=== PATIENT | female | born 1945 | race Hispanic/Latino ===

== ENCOUNTER 2019-12-05 16:36 | Emergency (ER) | payer MEDICARE ==
[~2019-12-05] VITALS: Ht 157.5 cm; Wt 70.3 kg
[2019-12-05] MEDS ORDERED: ACETAMINOPHEN 325 MG TAB PO ONE (17:00)
[2019-12-05] MEDS ORDERED: ACETAMINOPHEN 325 MG TAB ONE (17:03)
--- NOTE | 2019-12-05 17:10 | Emergency Department Note ---
History of Present Illnes History of Present Illness Chief Complaint: Extremity Trauma/Pain History of Present Illness This is a 74 year old female hand dominant. Approximately 8 this morning was chasing a dog and had a mechanical fall. Patient fell over to her left shoulder elbow and forearm, complaining of pain there, denies pain anywhere else, no LOC. Historian: Patient Arrival Mode: Car Onset (how long ago): day(s) Location: L arm Quality: ache Onset quality: gradual Duration (how long): day(s) (1) Timing of current episode: constant Progression: worsening Chronicity: new Relieving factors: none Exacerbating factors: movement Associated symptoms: Reports denies other symptoms Past Medical/Family History Physician Review I have reviewed the patient's past medical and family history. Any updates have been documented here. Past Medical History Recent Fever: No Clinical Suspicion of Infectio: No New/Unexplained Change in Ment: No Past Medical History: COPD Past Surgical History: None Review of Systems Review of Systems Constitutional: Reports no symptoms EENTM: Reports no symptoms Cardiovascular: Reports no symptoms Respiratory: Reports no symptoms Gastrointestinal: Reports no symptoms Genitourinary: Reports no symptoms Musculoskeletal: Reports as per HPI Integumentary: Reports no symptoms Neurological: Reports no symptoms Psychological: Reports no symptoms Endocrine: Reports no symptoms Hematological/Lymphatic: Reports no symptoms Physical Exam Related Data Allergies: Coded Allergies: No Known Allergies (Unverified , 12/05/19) Triage Vital Signs Vital Signs Date Time Temp Pulse Resp B/P (MAP) Pulse Ox O2 Delivery O2 Flow Rate FiO2 12/05/19 16:46 98.1 71 18 159/102 99 Room Air Physical Exam CONSTITUTIONAL Constitutional: Present well-developed, Present well-nourished HENT HENT: Present normocephalic, Present atraumatic, Present oropharynx clear/moist, Present nose normal HENT L/R: Present left ext ear normal, Present right ext ear normal EYES Eyes: Reports PERRL, Reports conjunctivae normal NECK Neck: Present ROM normal PULMONARY Pulmonary: Present effort normal, Present breath sounds normal CARDIOVASCULAR Cardiovascular: Present regular rhythm, Present heart sounds normal, Present capillary refill normal, Present normal rate GASTROINTESTINAL Abdominal: Present soft, Present nontender, Present bowel sounds normal GENITOURINARY Genitourinary: Present exam deferred SKIN Skin: Present warm, Present dry MUSCULOSKELETAL Musculoskeletal: Present ROM normal, Present other (the range of motion left elbow and left shoulder and left wrist secondary to pain, neurovascularly intact distally. Htxr-[id number]-bqagxryn edema over the left wrist.) NEUROLOGICAL Neurological: Present alert, Present oriented x 3, Present no gross motor or sensory deficits PSYCHOLOGICAL Psychological: Present mood/affect normal, Present judgement normal Procedures Orthopedic Splinting/Casting Injury: Injury #1 Side: left Upper exremity injury location: wrist Upper extremity immobilizer: volar splint Additional comments N/V intact distally Assessment & Plan Medical Decision Making MDM Patient is a 74-year-old female here with a mechanical fall, over her left arm. We will do an x-ray CT of her head given her age. We will rule out fracture versus contusion. Assessment & Plan Final Impression: (1) Fall (2) Triquetral fracture Depart Disposition: HOME, SELF-CARE Last Vital Signs Date Time Temp Pulse Resp B/P (MAP) Pulse Ox O2 Delivery O2 Flow Rate FiO2 12/05/19 16:46 98.1 71 18 159/102 99 Room Air Home Meds Active Scripts Tramadol Hcl (ULTRAM) 50 Mg Tablet, 50 MG PO Q6H PRN for severe pain, #10 TAB Prov:PB LIRA MD 12/05/19 Medications in the ED Acetaminophen 975 mg ONCE ONCE PO Last administered on 12/05/19at 16:58; Admin Dose 975 MG; Start 12/05/19 at 17:00; Stop 12/05/19 at 17:01; Status DC Acetaminophen 975 mg STK-MED ONCE .ROUTE ; Start 12/05/19 at 17:03; Stop 12/05/19 at 16:56; Status DC PB LIRA MD Dec 05, 2019 17:10
--- NOTE | 2019-12-05 17:52 | Diagnostic Imaging Report ---
Exam: SHOULDER LEFT COMPLETE - 2 views History: Fall, left arm pain Comparison: None. Findings: No acute displaced fractures. No joint malalignment or dislocation. Mild degenerative arthrosis of the acromioclavicular and glenohumeral joints. Focal calcifications overlying the greater tuberosity of the humerus. Impression: 1. No acute osseous abnormality. 2. Mild degenerative arthrosis of the acromioclavicular and glenohumeral joints. 3. Soft tissue calcifications overlying the greater tuberosity, suggestive of rotator cuff calcific tendinosis. Signed by: Dr. Sebastian Ernst M.D. on 12/05/2019 5:48 PM
--- NOTE | 2019-12-05 17:59 | Diagnostic Imaging Report ---
Exam: ELBOW LEFT COMPLETE, WRIST COMPLETE LEFT, FOREARM LEFT 2 VIEW History: Fall, left arm pain Comparison: None. Findings: Nondisplaced fracture along the dorsal aspect of the triquetral bone. No additional acute fractures visualized given limitations with diffuse osseous demineralization. No joint malalignment or dislocation. Mild degenerative changes of the elbow. No elbow joint effusion. Mild soft tissue swelling along the dorsal aspect of the wrist. Impression: 1. Nondisplaced fracture along the dorsal aspect of the triquetral bone. Associated overlying dorsal soft tissue swelling of the wrist. Signed by: Dr. Sebastian Ernst M.D. on 12/05/2019 5:55 PM
--- NOTE | 2019-12-05 18:20 | Diagnostic Imaging Report ---
History: 74-year-old female with Fall, pain Comparison studies: None Technique: Axial images were obtained from the brain and cervical spine. Coronal and sagittal images reconstructed from the axial data. Dose modulation, iterative reconstruction, and/or weight based adjustment of the mA/kV was utilized to reduce the radiation dose to as low as reasonably achievable. Intravenous contrast: None Findings: Head CT: Scalp/skull: No abnormalities. No fractures, blastic or lytic lesions. Brain sulci: Mildly prominent. Ventricles: Mild compensatory dilatation. No hydrocephalus. Extra-axial spaces: No masses. No fluid collections. Parenchyma: No abnormal densities No masses, hemorrhage, acute or chronic cortical vascular insults. Sellar/suprasellar region: No abnormalities. Craniocervical junction: Patent foramen magnum. No Chiari one malformation. Cervical spine CT: Alignment: Slight reversal of the cervical lordosis, centered at C5, may be positional. No scoliosis. Cervicomedullary junction: No abnormalities. The foramen magnum is patent. Soft tissues:No gross abnormalities . Soft tissues: No abnormalities.. Paraspinal muscles: Unremarkable Spinal cord: Can not be evaluated. Vertebrae: Normal in height and density. No fractures. No infection or neoplasm. Degenerative changes: Moderately degenerated discs from C4 to C7. Mild spinal canal stenosis also from C4 to C7 due to disc osteophyte complexes. Foraminal stenosis from C4 to C7 is worse (moderate) right at C4-5 and C5-6 Incidental findings: Calcification of the ligamentum nuchae at C4 and C5. Mild biapical lung scarring and paraseptal emphysema. IMPRESSION: Head CT: 1. No acute intracranial abnormalities. 2. Incidental mild age-related generalized volume loss. Cervical spine CT: 1. No acute abnormalities. 2. Specifically, no fractures. 3. Cannot adequately evaluate for ligament, spinal cord and or vascular abnormalities. 4. Degenerative changes as described A preliminary report was provided by Dr. Moncho Zacarias on 12/05/2019 at 6:19 PM. Signed by: Dr. Kartik Ortega M.D. on 12/05/2019 7:33 PM
[2019-12-05] MEDS ORDERED: ULTRAM50 MG PO (18:36)
--- NOTE | 2019-12-05 18:44 | NUR ---
Volar Splint applied to the left wrist
[2019-12-05 19:06] VITALS: BP 126/60
--- OUTSIDE RECORDS SUMMARY | 2019-12-11 18:09 | XMS REPORT | Continuity of Care Document ---
Author Author [facility] Address [address] [place] [id number] Phone Unavailable Care Team Providers Care Drive In Waiter/Waitress Name Role Phone Gus LIRA Unavailable Problems This patient has no known problems. Allergies, Adverse Reactions, Alerts This patient has no known allergies or adverse reactions. Medications This patient has no known medications. Procedures This patient has no known procedures. Results Test Description Test Time Test Comments Results Result Comments Source CT CERVICAL SPINE WO 2019-12-05 18:06:00 [facility] 1945 Sex: F [facility] [address] [address] Patient Name: JOE LU MR #: [id number] : 1945 Age/Sex: 74/F Req #: [id number] [facility] Physician: Ordered by: PB LIRA MD Report #: [id number] Location: ER Room/Bed: Procedure: [id number] CT/CT CERVICAL SPINE WO Exam Date: 12/05/19 Exam Time: 1734 REPORT STATUS: Signed History: 74-year-old female with Fall, pain Comparison studies: None Technique: Axial images were obtained from the brain and cervical spine. Coronal and sagittal images reconstructed from the axial data. Dose modulation, iterative reconstruction, and/or weight based adjustment of the mA/kV was utilized to reduce the radiation dose to as low as reasonably achievable. Intravenous contrast: None Findings: Head CT: Scalp/skull: No abnormalities. No fractures, blastic or lytic lesions. Brain sulci: Mildly prominent. Ventricles: Mild compensatory dilatation. No hydrocephalus. Extra-axial spaces: No masses. No fluid collections. Parenchyma: No abnormal densities No masses, hemorrhage, acute or chronic cortical vascular insults. Sellar/suprasellar region: No abnormalities. Craniocervical junction: Patent foramen magnum. No Chiari one malformation. Cervical spine CT: Alignment: Slight reversal of the cervical lordosis, centered at C5, may be positional. No scoliosis. Cervicomedullary junction: No abnormalities. The foramen magnum is patent. Soft tissues:No gross abnormalities . Soft tissues: No abnormalities.. Paraspinal muscles: Unremarkable Spinal cord: Can not be evaluated. Vertebrae: Normal in height and density. No fractures. No infection or neoplasm. Degenerative changes: Moderately degenerated discs from C4 to C7. Mild spinal canal stenosis also from C4 to C7 due to disc osteophyte complexes. Foraminal stenosis from C4 to C7 is worse (moderate) right at C4-5 and C5-6 Incidental findings: Calcification of the ligamentum nuchae at C4 and C5. Mild biapical lung scarring and paraseptal emphysema. IMPRESSION: Head CT: 1. No acute intracranial abnormalities. 2. Incidental mild age-related generalized volume loss. Cervical spine CT: 1. No acute abnormalities. 2. Specifically, no fractures. 3. Cannot adequately evaluate for ligament, spinal cord and or vascular abnormalities. 4. Degenerative changes as described A preliminary report was provided by Dr. Moncho Zacarias on 12/05/2019 at 6:19 PM. Signed by: Dr. Kartik Ortega M.D. on 12/05/2019 7:33 PM Dictated By: KARTIK ORTEGA MD, MD 32 Transcribed By: WENDY on 12/05/191932 COPY TO: PB LIRA MD CT BRAIN WO 2019-12-05 18:06:00 [facility] 1945 Sex: [place] [address] [id number] Patient Name: JOE LU MR #: [id number] : 1945 Age/Sex: 74/F Req #: [id number] [facility] Physician: Ordered by: PB LIRA MD Report #: [id number] Location: Room/Bed: Procedure: [id number] CT/CT BRAIN WO Exam Date: 12/05/19 Exam Time: 1734 REPORT STATUS: Signed History: 74-year-old female with Fall, pain Comparison studies: None Technique: Axial images were obtained from the brain and cervical spine. Coronal and sagittal images reconstructed from the axial data. Dose modulation, iterative reconstruction, and/or weight based adjustment of the mA/kV was utilized to reduce the radiation dose to as low as reasonably achievable. Intravenous contrast: None Findings: Head CT: Scalp/skull: No abnormalities. No fractures, blastic or lytic lesions. Brain sulci: Mildly prominent. Ventricles: Mild compensatory dilatation. No hydrocephalus. Extra-axial spaces: No masses. No fluid collections. Parenchyma: No abnormal densities No masses, hemorrhage, acute or chronic cortical vascular insults. Sellar/suprasellar region: No abnormalities. Craniocervical junction: Patent foramen magnum. No Chiari one malformation. Cervical spine CT: Alignment: Slight reversal of the cervical lordosis, centered at C5, may be positional. No scoliosis. Cer vicomedullary junction: No abnormalities. The foramen magnum is patent. Soft tissues:No gross abnormalities . Soft tissues: No abnormalities.. Paraspinal muscles: Unremarkable Spinal cord: Can not be evaluated. Vertebrae: Normal in height and density. No fractures. No infection or neoplasm. Degenerative changes: Moderately degenerated discs from C4 to C7. Mild spinal canal stenosis also from C4 to C7 due to disc osteophyte complexes. Foraminal stenosis from C4 to C7 is worse (moderate) right at C4-5 and C5-6 Incidental findings: Calcification of the ligamentum nuchae at C4 and C5. Mild biapical lung scarring and paraseptal emphysema. IMPRESSION: Head CT: 1. No acute intracranial abnormalities. 2. Incidental mild age-related generalized volume loss. Cervical spine CT: 1. No acute abnormalities. 2. Specifically, no fractures. 3. Cannot adequately evaluate for ligament, spinal cord and or vascular abnormalities. 4. Degenerative changes as described A preliminary report was provided by Dr. Moncho Zacarias on 12/05/2019 at 6:19 PM. Signed by: Dr. Kartik Tatum M.D. on 12/05/2019 7:33 PM Dictated By: KARTIK ORTEGA MD, MD 32 Transcribed By: WENDY on 12/05/191932 COPY TO: PB LIRA MD FOREARM LEFT 2 VIEW 2019-12-05 17:48:00 [facility] 1945 Sex: F [facility] [address] [address] Patient Name: JOE LU MR #: [id number] : 1945 Age/Sex: 74/F Req #: [id number] Adm Physician: Ordered by: PB LIRA MD Report #: [id number] Location: ER Room/Bed: Procedure: [id number] DX/FOREARM LEFT 2 VIEW Exam Date: 12/05/19 Exam Time: 1719 REPORT STATUS: Signed Exam: ELBOW LEFT COMPLETE, WRIST COMPLETE LEFT, FOREARM LEFT 2 VIEW History: Fall, left arm pain Comparison: None. Findings: Nondisplaced fracture along the dorsal aspect of the triquetral bone. No additional acute fractures visualized given limitations with diffuse osseous demineralization. No joint malalignment or dislocation. Mild degenerative changes of the elbow. No elbow joint effusion. Mild soft tissue swelling along the dorsal aspect of the wrist. Impression: 1. Nondisplaced fracture along the dorsal aspect of the triquetral bone. Associated overlying dorsal soft tissue swelling of the wrist. Signed by: Dr. Rizwana Ernst M.D. on 12/05/2019 5:55 PM Dictated By: RIZWANA ERNST MD 54 Transcribed By: WENDY on 12/05/191754 COPY TO: PB LIRA MD WRIST COMPLETE LEFT 2019-12-05 17:48:00 [facility] 1945 Sex: [place] [address] [address] Patient Name: JOE LU MR #: [id number] : 1945 Age/Sex: 74/F Req #: [id number] [facility] Physician: Ordered by: PB LIRA MD Report #: [id number] Location: ER Room/Bed: Procedure: [id number] DX/WRIST COMPLETE LEFT Exam Date: 12/05/19 Exam Time: 1719 REPORT STATUS: Signed Exam: ELBOW LEFT COMPLETE, WRIST COMPLETE LEFT, FOREARM LEFT 2 VIEW History: Fall, left arm pain Comparison: None. Findings: Nondisplaced fracture along the dorsal aspect of the triquetral bone. No additional acute fractures visualized given limitations with diffuse osseous demineralization. No joint malalignment or dislocation. Mild degenerative changes of the elbow. No elbow joint effusion. Mild soft tissue swelling along the dorsal aspect of the wrist. Impression: 1. Nondisplaced fracture along the dorsal aspect of the triquetral bone. Associated overlying dorsal soft tissue swelling of the wrist. Signed by: Dr. Rizwana Ernst M.D. on 12/05/2019 5:55 PM Dictated By: RIZWANA ERNST MD 54 Transcribed By: WENDY on 12/05/191754 COPY TO: PB LIRA MD ELBOW LEFT COMPLETE 2019-12-05 17:48:00 [facility] 1945 Sex: [place] [address] [id number] Patient Name: JOE LU MR #: [id number] : 1945 Age/Sex: 74/F Req #: [id number] [facility] Physician: Ordered by: PB LIRA MD Report #: [id number] Location: Room/Bed: Procedure: [id number] DX/ELBOW LEFT COMPLETE Exam Date: 12/05/19 Exam Time: 1719 REPORT STATUS: Signed Exam: ELBOW LEFT COMPLETE, WRIST COMPLETE LEFT, FOREARM LEFT 2 VIEW History: Fall, left arm pain Comparison: None. Findings: Nondisplaced fracture along the dorsal aspect of the triquetral bone. No additional acute fractures visualized given limitations with diffuse osseous demineralization. No joint malalignment or dislocation. Mild degenerative changes of the elbow. No elbow joint effusion. Mild soft tissue swelling along the dorsal aspect of the wrist. Impression: 1. Nondisplaced fracture along the dorsal aspect of the triquetral bone. Associated overlying dorsal soft tissue swelling of the wrist. Signed by: Dr. Rizwana Ernst M.D. on 12/05/2019 5:55 PM Dictated By: RIZWANA ERNST MD 54 Transcribed By: WENDY on 12/05/191754 COPY TO: PB LIRA MD SHOULDER LEFT COMPLETE 2019-12-05 17:46:00 [facility] 1945 Sex: [place] [address] [place] [address] Patient Name: JOE LU MR #: [id number] : 1945 Age/Sex: 74/F Req #: [id number] Adm Physician: Ordered by: PB LIRA MD Report #: [id number] Location: Room/Bed: Procedure: [id number] DX/SHOULDER LEFT COMPLETE Exam Date: 12/05/19 Exam Time: 1719 REPORT STATUS: Signed Exam: SHOULDER LEFT COMPLETE - 2 views History: Fall, left arm pain Comparison: None. Findings: No acute displaced fractures. No joint malalignment or dislocation. Mild degenerative arthrosis of the acromioclavicular and glenohumeral joints. Focal calcifications overlying the greater tuberosity of the humerus. Impression: 1. No acute osseous abnormality. 2. Mild degenerative arthrosis of the acromioclavicular and glenohumeral joints. 3. Soft tissue calcifications overlying the greater tuberosity, suggestive of rotator cuff calcific tendinosis. Signed by: Dr. Rizwana Ernst M.D. on 12/05/2019 5 :48 PM Dictated By: RIZWANA ERNST MD 47 Transcribed By: WENDY on 12/05/191747 COPY TO: PB LIRA MD CT Brain/Head w/o Contrast 2018-06-03 17:23:11 P atient: JOE LU Date/Time06/03/2018 17:17 CDTReason for ExamHeadache(s)ReportCT HEAD WITHOUT CONTRASTCLINICAL HISTORY: Headache(s)COMPARISON: None available.TECHNIQUE: 5 mm axial images of the brain were obtained without contrast. Coronal and sagittal reformats were obtained. One or more of the following dose reduction techniques were used: Automated exposure control, adjustment of the mA and/or kV according to patient size, and/or utilization of iterative reconstruction technique.FINDINGS: There is no acute intracranial hemorrhage or extra-axial collection. The augustine-white matter differentiation is well-preserved without evidence of edema or acute infarct. There is no hydrocephalus, midline shift, or mass effect.The cranial vault and skull base are intact. The paranasal sinuses and mastoid air cells are pneumatized and well-aerated.IMPRESSION: No acute intracranial abnormalityLocation: R16 Final Dictated by: MD Rose Adam FDictated DT/TM: 06/03/2018 5:21 pmSigned by: MD Rose Adam FSigned (Electronic Signature): 06/03/2018 5:23 pm XR Chest 1 View Frontal 2018-06-03 17:19:26 Lilian ent: JOE LU Date/Time06/03/2018 17:03 CDTReason for ExamChest painReportCHEST 1 VIEWCLINICAL INFORMATION: Chest painCOMPARISON: NoneFINDINGS:The lungs are well-expanded. Mild diffuse reticular interstitial prominence is noted. No acute airspace consolidation is seen. The heart size is normal. Mild atherosclerotic calcifications are present in the aorta. The bones are intact.IMPRESSION:Diffuse interstitial opacities may reflect underlying COPD/emphysema.LOCATION: R16 Final Dictated by: MD Rose Adam FDictated DT/TM: 06/03/2018 5:18 pmSigned by: MD Rose Adam FSigned (Electronic Signature): 06/03/2018 5:19 pm
== END 2019-12-05 19:08 | disposition home or self-care (01) ==
LOC: ER 17:43
DX: S62.112A Displaced fracture of triquetrum [cuneiform] bone, left wrist, initial encounter for closed fracture (principal); W01.0XXA Fall on same level from slipping, tripping and stumbling without subsequent striking against object, initial encounter; Y93.02 Activity, running; Y92.008 Other place in unspecified non-institutional (private) residence as the place of occurrence of the external cause; J44.9 Chronic obstructive pulmonary disease, unspecified
CPT/HCPCS: 70450; 72125; 99284